=== PATIENT | female | born 1990 | race Caucasian/White ===

== ENCOUNTER 2018-05-18 09:26 | Emergency (ER) | payer MEDICAID, OTHER ==
[2018-05-18 09:59] VITALS: BP 113/70; PULSE 71; RESP 15; TEMP 98.6; O2SAT 100
[2018-05-18] MEDS ORDERED: Sodium Chloride 0.9% 1,000 ML IV STA (10:18)
--- NOTE | 2018-05-18 10:22 | ED PDOC ---
HPI: Headache Time Seen by Provider: 05/18/18 10:09 Chief Complaint (Nursing): Headache Chief Complaint (Provider): Face, posterior headache x 2 days History Per: Patient History/Exam Limitations: no limitations Onset/Duration Of Symptoms: Days Current Symptoms Are (Timing): Still Present Quality: Sharp, Pressure Preceeding Symptoms: Known Migraine Symptoms Associated Symptoms: Photophobia. denies: Blurred Vision, Nausea, Vomiting, Extremity Weakness Additional Complaint(s): 27 o female with history of budchiari malformation and migraines presents with 2 weeks of headache. Pt reports pain in the face/eyes area, behind nose and posterior head. Pt states this feels similar to previous migraine headaches. Pt states she does see neurologist who prescribed her sumatriptan. Pt states she took sumatriptan and motrin over the last few days but nothing worked. Past Medical History Reviewed: Historical Data, Nursing Documentation, Vital Signs Vital Signs: Last Vital Signs Temp 98.6 F 05/18/18 09:59 Pulse 71 05/18/18 09:59 Resp 15 05/18/18 09:59 BP 113/70 05/18/18 09:59 Pulse Ox 100 05/18/18 09:59 - Medical History PMH: Anxiety - Surgical History Surgical History: No Surg Hx - Family History Family History: States: No Known Family Hx - Living Arrangements Living Arrangements: With Family - Home Medications Home Medications: Ambulatory Orders Medication Instructions Recorded Ibuprofen [Advil] 400 mg PO PRN PRN 02/08/15 Acetaminophen/Codeine Phosph 1 tab PO Q6H PRN #20 tab 02/09/15 [Acetaminophen/Codeine 300 mg-15 mg] - Allergies Allergies/Adverse Reactions: Allergies Allergy/AdvReac Type Severity Reaction Status Date / Time No Known Allergies Allergy Verified 02/08/15 18:30 Review of Systems ROS Statement: Except As Marked, All Systems Reviewed And Found Negative Constitutional: Negative for: Fever, Chills ENT: Positive for: Other (Photophobia) Neurological: Positive for: Headache. Negative for: Weakness, Numbness, Incoordination, Change in Speech, Confusion, Seizures, Altered Mental Status - ECG O2 Sat by Pulse Oximetry: 100 Medical Decision Making Medical Decision Making: Informed at 1105 that patient was not in room when Ed, technology analyst attempted to collect urine for test. Disposition - Clinical Impression Clinical Impression: Headache - Patient ED Disposition Is Patient to be Admitted: No - Disposition Disposition: Left W/O Treatment Disposition Time: 11:05 Condition: STABLE Forms: [facility] (Danish)
== END 2018-05-18 11:20 | disposition left against medical advice (07) ==
LOC: H.ER 09:26
DX: R51 Headache (principal)